=== PATIENT | male | born 1985 | race Caucasian/White ===

== ENCOUNTER 2018-07-12 15:54 | Observation (INO) ==
[2018-07-12] MEDS ORDERED: ONDANSETRON HCL/PF 2 MG/ML VIAL ONE (16:07)
[2018-07-12] MEDS ORDERED: ONDANSETRON HCL/PF 2 MG/ML VIAL IV ONE (16:10)
[2018-07-12] MEDS ORDERED: NORMAL SALINE 1,000 ML IV ONE (16:31)
[2018-07-12] MEDS ORDERED: PROCHLORPERAZINE EDISYLATE 5 MG/ML VIAL IV ONE (16:31)
[2018-07-12] MEDS ORDERED: PROCHLORPERAZINE EDISYLATE 5 MG/ML VIAL ONE (16:42)
[2018-07-12 17:09] LABS: Hematocrit 46.8 % (42.0-52.0); Hemoglobin 15.6 gm/dL (13.5-18.0); Mean Cell Volume 96.7 fl (78-100); Mean Corpuscular Hemoglobin 32.2 pg (27-31); Mean Corpuscular Hgb Conc 33.3 g/dl (32-36); Mean Platelet Volume 10.5 fl (8-11.3); Neutrophil % 86.1 % (42-75.0); Platelet Count 154 K/mm3 (150-450); Red Blood Count 4.84 M/mm3 (4.7-6.0); Red Cell Distribution Width 12.2 % (11.5-14.0)
[2018-07-12 17:25] LABS: ALT 92 U/L (19-67); AST 67 U/L (0-48); Alkaline Phosphatase * 167 U/L (50-170); Anion Gap 14.8 mmol/L (6.8-13.8); BUN/Creatinine Ratio 9.8 (9.0-21.6); Bilirubin, Total 0.7 mg/dL (0.0-1.1); Blood Urea Nitrogen 10 mg/dL (6-23); Ca. Corrected For Albumin 8.9 mg/dL (8.4-10.2); Calcium * 9.2 mg/dL (7.9-10.9); Carbon Dioxide 28.3 mmol/L (24-32.6); Chloride 98 mmol/L (97-106); Glucose * 171 mg/dL (70-110); Potassium 4.1 mmol/L (3.4-4.6); Sodium 137 mmol/L (132-142); Total Protein 8.5 gm/dL (6.2-8.2)
[2018-07-12] MEDS ORDERED: DIPHTH,PERTUSS(ACELL),TET VAC 0.5 ML VIAL IM ONE ×2 (17:27→17:33)
--- NOTE | 2018-07-12 17:39 | ERNOTE ---
Neuro HPI ER Record Date of Service: 07/12/18 Presenting Symptoms: other - seizure, head injury Time Seen by Provider: 07/12/18 16:20 Source: patient Exam Limitations: no limitations Immunizations: IMMUNIZATION HX Immunizations Up to Date No History of Influenza Vaccine No Hx Pneumococcal Vaccination No Allergies/Adverse Reactions: Allergies Allergy/AdvReac Type Severity Reaction Status Date / Time codeine AdvReac Mild Nausea Verified 07/12/18 16:01 vitamin K AdvReac Mild Nausea Uncoded 07/12/18 16:01 Home Medications: HOME MEDICATIONS Qvar 07/12/18 [Last Taken Unknown] Venlafaxine HCl [Effexor Xr] 75 mg PO DAILY 07/12/18 [Last Taken 07/12/18] Ventolin HFA 07/12/18 [Last Taken Unknown] levETIRAcetam [Keppra] 1,000 mg PO BID 07/12/18 [Last Taken 07/12/18] - History of Present Illness Narrative: Patient presents to the ED via EMS. I saw him earlier today and I would refer you to that note. He had a seizure earlier. History of seizure disorder. Observed here, he wanted to go to catch the next train. Waiting for the next train he apparently had a recurrent seizure by EMS report. Hit his head withthis. EMS called. He had a headache and hit his head and face. he does not recall anything. Has vomited since hitting his head. No acute focal N/T/W. No CP or SOB. 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 Denies: fever/chills Prior Treament: Reports: recently seen, treated by physician Review of Systems - Review of Systems Constitutional: Absent: fever EYE: Absent: vision changes ENT: Absent: sore throat Respiratory: Absent: shortness of breath Cardiology: Absent: chest pain Gastrointestinal/Abdominal: Present: vomiting. Absent: abdominal pain Genitourinary: Absent: dysuria Musculoskeletal: Present: other - denies joint pain Neurological: Absent: weakness All Other Systems: All systems neg except as marked Medical History (Last Reviewed 07/12/18 @ 17:36 by Hari Gayle MD) Asthma Epilepsy Hx of pleural empyema Surgical History: Surgical History (Last Reviewed 07/12/18 @ 17:36 by Hari Gayle MD) H/O chest tube placement Social History: Preferred Language Faroese Physical Exam - Physical Exam General Appearance: Present: alert, no apparent distress Head Exam: Present: normal inspection, other - abrasions right face and right ear. . Absent: Best's Sign, raccoon eyes Eye Exam: Normal inspection: bilateral, PERRL: bilateral Ears, Nose, Throat: Present: other - mild tendenress and abrasions right zygomatic. No otorrhea or rhinorrhea Neck: Present: normal inspection, other - No CT fracture. Paraspinal muscular tendenress. No localizing point vertebral tenderness, no suggestion of ligamentous injury. Cleared after CT Respiratory: Present: no respiratory distress, normal breath sounds, no accessory muscle use, lungs clear Cardiovascular/Chest: Present: regular rate, rhythm, normal peripheral pulses Gastrointestinal/Abdominal: Present: normal bowel sounds, nontender, nondistended, soft Back Exam: Present: no vertebral tenderness Extremity Exam: Present: normal inspection, other - no deformity Neurological Exam: Present: alert, other - no acute unilateral focal motor or sensory deficits Skin Exam: Present: normal color, warm/dry ED Progress - Results and Orders Patient's Lab Results:: I have reviewed the patient's lab results. - Vital Signs Patient's Vital Signs:: I have reviewed the patient's vital signs. Vital Signs: Vital Signs 07/12/18 15:58 Temperature 36.7 C Pulse Rate 114 H Respiratory Rate 15 Blood Pressure 150/101 H O2 Sat by Pulse Oximetry 97 - CT/Ultrasound CT/Ultrasound Narrative: I reviewed radiology reports for HCT, C-spine, max/fac. - Progress/Reassessment Chief Complaint: Seizure Activity Progress Note-Subjective: 07/12/18 18:18 Patient given IV Keppra. D/W Dr Poon. Given second EMS visit will admit obs. Dr Poon and patient agreeable. Departure Clinical Impression: Recurrent seizures, Head injury - Departure Disposition: Still a patient Condition: Stable
[2018-07-12 18:19] LABS: Urine Bilirubin Negative (NEGATIVE); Urine Blood 50 /ul (NEGATIVE); Urine Ketone 15 mg/dL (NEGATIVE); Urine Nitrite Negative (NEGATIVE); Urine Protein 100 mg/dL (NEGATIVE); Urine Specific Gravity 1.025 SP.GR. (1.005-1.030); Urine Urobilinogen Normal (NORMAL); Urine pH 6.5 pH (5.0-7.0)
[2018-07-12 18:35] LABS: Urine Appearance Cloudy (CLEAR); Urine Bacteria TRACE; Urine Color Yellow; Urine RBC 0-5 /hpf (0-5); Urine Sperm Few - 1+; Urine WBC TRACE /hpf (0-5)
[2018-07-12 18:46] LABS: Cocaine Ur Negative (NEGATIVE); Urine Barbiturate Negative (NEGATIVE); Urine Benzodiazepines Negative (NEGATIVE); Urine Opiates Negative (NEGATIVE); Urine PCP Negative (NEGATIVE)
[2018-07-12 18:51] LABS: Urine THC Positive (NEGATIVE)
--- NOTE | 2018-07-12 21:55 | HP ---
Chief Complaint - Chief Complaint Date of Service: 07/12/18 Time of Service: 21:38 Chief Complaint: Seizure History of Present Illness: Norbert is a 33 yo male with known seizure disorder. Currently takes Keppra 1000mg BID. Last dose was yesterday and he is pretty compliant with medications. He reports that he has been traveling train from [place] to [place] and has not slept well the last 3 nights. He reports stress from moving across country, having a change in house, job, and lifestyle. His last seizure was 4 months ago. He has not had two seizures in the same day since he was first diagnosed with a seizure disorder. He admits that sleep deprivation was found to be a trigger for his seizures. 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 Smoking Status Current every day smoker Have you smoked in the past 12 Yes months Review Of Systems (GEN) - Review of Systems Generalized/Overall Review: Present: Fatigue. Absent: Weakness, Chills, Fever EENTM: Present: No Symptoms Reported Respiratory: Absent: Cough, Shortness of Breath Cardiac: Absent: Chest Pain, Edema Abdominal: Absent: Nausea, Vomiting Genitourinary: Present: No Symptoms Reported Musculoskeletal: Present: No Symptoms Reported Neurological: Present: No Symptoms Reported Skin: Present: No Symptoms Reported Endocrine: Present: No Symptoms Reported Immunizations: IMMUNIZATION HX Immunizations Up to Date No History of Influenza Vaccine No Hx Pneumococcal Vaccination No Allergies/Adverse Reactions: Allergies Allergy/AdvReac Type Severity Reaction Status Date / Time codeine AdvReac Mild Nausea Verified 07/12/18 18:48 vitamin K AdvReac Mild Nausea Uncoded 07/12/18 18:48 Home Medications: HOME MEDICATIONS Qvar 07/12/18 [Last Taken Unknown] Venlafaxine HCl [Effexor Xr] 75 mg PO DAILY 07/12/18 [Last Taken 07/12/18] Ventolin HFA 07/12/18 [Last Taken Unknown] levETIRAcetam [Keppra] 1,000 mg PO BID 07/12/18 [Last Taken 07/12/18] Exam - Exam Vital Signs: Vital Signs - Last Taken Temp 37.0 C 07/12/18 20:46 Pulse 88 07/12/18 20:46 Resp 18 07/12/18 20:46 BP 129/88 07/12/18 20:46 Pulse Ox 98 07/12/18 20:46 Constitutional: Present: Alert, Oriented x3, Cooperative ENT Exam: Present: hearing grossly normal Eye Exam: bilateral eye: normal inspection Respiratory: Present: lungs clear, normal breath sounds Cardiovascular/Chest: Present: regular rate, rhythm, no murmur Abdomen: Present: Normal bowel sounds, soft, nontender, nondistended, no rebound tenderness Skin Exam: Present: normal color, warm/dry, no cyanosis Appearance: Present: appropriate appearance, appropriate insight Eye contact: Present: cooperative, good eye contact, normal speech Thoughts: Present: normal thought pattern, no apparent hallucination Diagnostic Studies: Abnormal Lab Results 07/12/18 07/12/18 07/12/18 Range/Units 17:08 17:08 18:11 MCH 32.2 H (27-31) pg Neutrophils % 86.1 H (42-75.0) % Lymphocytes % 7.9 L (20-51) % Lymphocytes # 0.55 L (1.5-3.5) k/mm3 Anion Gap 14.8 H (6.8-13.8) mmol/L Random Glucose 171 H (70-110) mg/dL AST 67 H (0-48) U/L ALT 92 H (19-67) U/L Total Protein 8.5 H (6.2-8.2) gm/dL Urine Protein 100 H (NEGATIVE) mg/dL Urine Glucose (UA) 100 H (NEGATIVE) mg/dL Urine Blood 50 H (NEGATIVE) /ul Urine Sperm Few - 1+ H (NONE) Urine Marijuana (THC) (NEGATIVE) 07/12/18 Range/Units 18:11 MCH (27-31) pg Neutrophils % (42-75.0) % Lymphocytes % (20-51) % Lymphocytes # (1.5-3.5) k/mm3 Anion Gap (6.8-13.8) mmol/L Random Glucose (70-110) mg/dL AST (0-48) U/L ALT (19-67) U/L Total Protein (6.2-8.2) gm/dL Urine Protein (NEGATIVE) mg/dL Urine Glucose (UA) (NEGATIVE) mg/dL Urine Blood (NEGATIVE) /ul Urine Sperm (NONE) Urine Marijuana (THC) Positive H (NEGATIVE) Laboratory Results WBC 7.0 K/mm3 (4.0-10.5) 07/12/18 17:08 RBC 4.84 M/mm3 (4.7-6.0) 07/12/18 17:08 Hgb 15.6 gm/dL (13.5-18.0) 07/12/18 17:08 Hct 46.8 % (42.0-52.0) 07/12/18 17:08 MCV 96.7 fl (78-100) 07/12/18 17:08 MCH 32.2 pg (27-31) H 07/12/18 17:08 MCHC 33.3 g/dl (32-36) 07/12/18 17:08 RDW 12.2 % (11.5-14.0) 07/12/18 17:08 Plt Count 154 K/mm3 (150-450) 07/12/18 17:08 MPV 10.5 fl (8-11.3) 07/12/18 17:08 Immature Gran % (Auto) 0.30 % (0.001-0.429) 07/12/18 17:08 Immature Gran # (Auto) 0.02 K/mm3 (0.000-0.0310) 07/12/18 17:08 Neutrophils % 86.1 % (42-75.0) H 07/12/18 17:08 Lymphocytes % 7.9 % (20-51) L 07/12/18 17:08 Monocytes % 4.9 % (0.0-9) 07/12/18 17:08 Eosinophils % 0.1 % (0.0-3.0) 07/12/18 17:08 Basophils % 0.7 % (0.0-1.0) 07/12/18 17:08 Nucleated RBC % 0.0 k/mm3 (0-1) 07/12/18 17:08 Neutrophils # 6.0 K/mm3 (1.3-6.0) 07/12/18 17:08 Lymphocytes # 0.55 k/mm3 (1.5-3.5) L 07/12/18 17:08 Monocytes # 0.3 k/mm3 (0.0-1.0) 07/12/18 17:08 Eosinophils # 0.0 k/mm3 (0.0-0.7) 07/12/18 17:08 Absolute Basophils 0.1 k/mm3 (0.0-0.1) 07/12/18 17:08 Sodium 137 mmol/L (132-142) 07/12/18 17:08 Plasma Sodium 138 mmol/L (130-142) 07/12/18 17:08 Potassium 4.1 mmol/L (3.4-4.6) 07/12/18 17:08 Chloride 98 mmol/L (97-106) 07/12/18 17:08 Carbon Dioxide 28.3 mmol/L (24-32.6) 07/12/18 17:08 Anion Gap 14.8 mmol/L (6.8-13.8) H 07/12/18 17:08 BUN 10 mg/dL (6-23) 07/12/18 17:08 Creatinine 1.02 mg/dL (0.4-1.4) 07/12/18 17:08 Est GFR (Non-Af Amer) 89 mL/min (60-130) 07/12/18 17:08 BUN/Creatinine Ratio 9.8 (9.0-21.6) 07/12/18 17:08 Random Glucose 171 mg/dL (70-110) H 07/12/18 17:08 Calcium 9.2 mg/dL (7.9-10.9) 07/12/18 17:08 Calcium Adj for Albumin 8.9 mg/dL (8.4-10.2) 07/12/18 17:08 Total Bilirubin 0.7 mg/dL (0.0-1.1) 07/12/18 17:08 AST 67 U/L (0-48) H 07/12/18 17:08 ALT 92 U/L (19-67) H 07/12/18 17:08 Alkaline Phosphatase 167 U/L (50-170) 07/12/18 17:08 Total Protein 8.5 gm/dL (6.2-8.2) H 07/12/18 17:08 Albumin 4.0 gm/dl (3.4-5.0) 07/12/18 17:08 Urine Color Yellow 07/12/18 18:11 Urine Appearance Cloudy (CLEAR) 07/12/18 18:11 Urine pH 6.5 pH (5.0-7.0) 07/12/18 18:11 Ur Specific [place] 1.025 SP.GR. (1.005-1.030) 07/12/18 18:11 Urine Protein 100 mg/dL (NEGATIVE) H 07/12/18 18:11 Urine Glucose (UA) 100 mg/dL (NEGATIVE) H 07/12/18 18:11 Urine Ketones 15 mg/dL (NEGATIVE) 07/12/18 18:11 Urine Blood 50 /ul (NEGATIVE) H 07/12/18 18:11 Urine Nitrate Negative (NEGATIVE) 07/12/18 18:11 Urine Bilirubin Negative mg/dl (NEGATIVE) 07/12/18 18:11 Prot Sulfosalicylic Acd 1+ mg/dL (0) 07/12/18 18:11 Urine Urobilinogen Normal EU/dl (NORMAL) 07/12/18 18:11 Ur Leukocyte Esterase Negative /ul (NEGATIVE) 07/12/18 18:11 Urine RBC 0-5 /hpf (0-5) 07/12/18 18:11 Urine WBC Trace /hpf (0-5) 07/12/18 18:11 Ur Epithelial Cells Trace /hpf (0-5) 07/12/18 18:11 Urine Bacteria Trace (NONE) 07/12/18 18:11 Urine Sperm Few - 1+ (NONE) H 07/12/18 18:11 Urine Culture Comments No culture indicated 07/12/18 18:11 Urine Opiates Screen Negative (NEGATIVE) 07/12/18 18:11 Barbiturate Screen Negative (NEGATIVE) 07/12/18 18:11 Ur Phencyclidine Scrn Negative (NEGATIVE) 07/12/18 18:11 Urine Amphetamine Negative (NEGATIVE) 07/12/18 18:11 U Benzodiazepines Scrn Negative (NEGATIVE) 07/12/18 18:11 Urine Cocaine Screen Negative (NEGATIVE) 07/12/18 18:11 Urine Marijuana (THC) Positive (NEGATIVE) H 07/12/18 18:11 Ethyl Alcohol Less than 3.0 mg/dL (0.0-10.0) 07/12/18 17:08 Assessment/Plan - Narrative Narrative: Norbert is a 33 yo male with breakthrough seizures. He is compliant on his Keppra 1000mg BID. He is however sleep deprived and this is a known trigger. He will be monitored overnight in the hospital. He was given IV keppra and will be continued on his home dose. If no further seizures will plan to discharge tomorrow and hopefully he can get some rest here overnight as compared to the train and improve his sleep hygiene to help prevent further seizures. - Assessment/Plan (1) Breakthrough seizure Problem: Acute
--- NOTE | 2018-07-13 08:40 | DS ---
(1) Breakthrough seizure Problem: Acute Description of Stay: Norbert is a 33 yo male that was admitted to observation for breakthrough seizures. He has a history of epilepsy typically well controlled on Keppra. He has been traveling from [place] on the train and reports difficulty sleeping. He reports sleep deprivation was a trigger for his seizures. He had two seizures yesterday which was uncharacteristic of him. He was give IV Keppra and observed overnight. He had no seizures in the hospital. He is doing well this morning and will be discharged. He is ok to travel but should try and get rest as much as he can. Continue his home Keppra. Procedures Performed: none Results and Findings: Lab Pending Results 07/12/18 17:08: WBC 7.0, RBC 4.84, Hgb 15.6, Hct 46.8, MCV 96.7, MCH 32.2 H, MCHC 33.3, RDW 12.2, Plt Count 154, MPV 10.5, Immature Gran % (Auto) 0.30, Immature Gran # (Auto) 0.02, Neutrophils % 86.1 H, Lymphocytes % 7.9 L, Monocytes % 4.9, Eosinophils % 0.1, Basophils % 0.7, Nucleated RBC % 0.0, Neutrophils # 6.0, Lymphocytes # 0.55 L, Monocytes # 0.3, Eosinophils # 0.0, Absolute Basophils 0.1 07/12/18 17:08: Sodium 137, Plasma Sodium 138, Potassium 4.1, Chloride 98, Carbon Dioxide 28.3, Anion Gap 14.8 H, BUN 10, Creatinine 1.02, Est GFR (Non-Af Amer) 89, BUN/Creatinine Ratio 9.8, Random Glucose 171 H, Calcium 9.2, Calcium Adj for Albumin 8.9, Total Bilirubin 0.7, AST 67 H, ALT 92 H, Alkaline Phosphatase 167, Total Protein 8.5 H, Albumin 4.0, Ethyl Alcohol Less than 3.0 07/12/18 18:11: Urine Color Yellow, Urine Appearance Cloudy, Urine pH 6.5, Ur Specific [place] 1.025, Urine Protein 100 H, Urine Glucose (UA) 100 H, Urine Ketones 15, Urine Blood 50 H, Urine Nitrate Negative, Urine Bilirubin Negative, Prot Sulfosalicylic Acd 1+, Urine Urobilinogen Normal, Ur Leukocyte Esterase Negative, Urine RBC 0-5, Urine WBC Trace, Ur Epithelial Cells Trace, Urine Bacteria Trace, Urine Sperm Few - 1+ H, Urine Culture Comments No culture indicated 07/12/18 18:11: Urine Opiates Screen Negative, Barbiturate Screen Negative, Ur Phencyclidine Scrn Negative, Urine Amphetamine Negative, U Benzodiazepines Scrn Negative, Urine Cocaine Screen Negative, Urine Marijuana (THC) Positive H Discharge Location: Home Disposition: Home self-care Condition: Stable Discharge Activity: Activity as tolerated Discharge Diet: General/regular food Problem Oriented Discharge Instructions to Patient/Family: Epilepsy, [id number] Complete Home Medications List: Complete Home Medication List: Qvar 07/12/18 Venlafaxine HCl [Effexor Xr] 75 mg PO DAILY 07/12/18 Ventolin HFA 07/12/18 levETIRAcetam [Keppra] 1,000 mg PO BID 07/12/18
[2018-07-13] MEDS ORDERED: VENLAFAXINE HCL 37.5 MG CAP.SR.24H PO SCH (09:00)
[2018-07-13] MEDS ORDERED: levETIRAcetam 500 MG TABLET PO SCH (09:00)
[2018-07-13 10:08] VITALS: BP 141/92
== END 2018-07-13 10:00 | disposition home or self-care (01) ==
LOC: ER 15:54 → MS 15:54
PROVIDERS: ADMIT Family Medicine; ATTEND Family Medicine
CPT/HCPCS: 36415; 70450; 70486; 72125; 80053; 80177; 80307; 80320; 81001; 85025; 90471; 96361; 96365; 96375; 99284; G0378; G0479; G0481; J2405